=== PATIENT | female | born 1940 | race Caucasian/White ===

== ENCOUNTER 2018-02-06 02:00 | Inpatient (IN) | payer MEDICARE, OTHER ==
[~2018-02-06] VITALS: Ht 162.6 cm; Wt 99.3 kg
[2018-02-06 02:02] VITALS: BP 140/101
[2018-02-06 02:29] LABS: ABSOLUTE BASOPHILS 0.1 thou/uL (0.0-0.2); ABSOLUTE EOSINOPHILS 0.8 thou/uL (0.0-0.7); ABSOLUTE LYMPHOCYTES 2.2 thou/uL (0.8-5.3); ABSOLUTE MONOCYTES 0.8 thou/uL (0.0-1.2); ABSOLUTE NEUTROPHILS 6.8 thou/uL (1.6-8.1); EOSINOPHILS 7.2 %; HEMATOCRIT 43.1 % (37.0-47.0); HEMOGLOBIN 14.2 gm/dL (12.0-15.0); LYMPHOCYTES 20.4 %; MCH 31.3 pg (26.0-34.0); MCV 94.9 fL (80.0-100.0); MONOCYTES 7.9 %; MPV 8.1 fl. (7.2-11.1); NUCLEATED RBCS 0 /100WBC; PLATELET COUNT* 305 thou/uL (150-400); POLYS 63.5 %; RBC 4.54 mil/uL (4.20-5.00); RDW-CV 13.7 % (10.5-14.5); WBC 10.7 thou/uL (4.0-11.0)
[2018-02-06 02:33] LABS: CALCIUM 8.6 mg/dL (8.5-10.1); CREATININE 0.8 mg/dL (0.6-1.3); POTASSIUM 3.3 mmol/L (3.5-5.1)
[2018-02-06 02:36] LABS: APTT 46.2 Seconds (25.0-31.3); INR 3.1; PROTIME 31.4 Seconds (9.20-11.50)
[2018-02-06 02:37] LABS: ALBUMIN 2.9 g/dL (3.4-5.0); TOTAL BILIRUBIN 0.3 mg/dL (<0.1-1.0); TOTAL PROTEIN 7.1 g/dL (6.4-8.2)
[2018-02-06 03:24] LABS: URINE BILIRUBIN NEGATIVE (Negative); URINE BLOOD TRACE (Negative); URINE CLARITY CLEAR; URINE COLOR YELLOW; URINE GLUCOSE-RANDOM NEGATIVE (Negative); URINE KETONES NEGATIVE (Negative); URINE LEUKOCYTES-REFLEX NEGATIVE (Negative); URINE NITRITE-REFLEX NEGATIVE (Negative); URINE PROTEIN NEGATIVE (Negative); URINE UROBILINOGEN 0.2 E.U./dl (0.2-1.0)
[2018-02-06] MEDS ORDERED: GABAPENTIN 100100 MG PO (04:14)
[2018-02-06] MEDS ORDERED: CYMBALTA30 MG PO (04:14)
[2018-02-06] MEDS ORDERED: NORVASC5 MG PO (04:14)
[2018-02-06] MEDS ORDERED: COUMADIN 3 MG TA3 M1 PO (04:15)
[2018-02-06] MEDS ORDERED: COUMADIN 4 MG TA4 M1 PO (04:15)
[2018-02-06] MEDS ORDERED: ARICEPT 5 MG TAB5 MG PO (04:16)
[2018-02-06] MEDS ORDERED: PROTONIX40 M1 PO (04:16)
[2018-02-06] MEDS ORDERED: WELLBUTRIN SR150 MG PO (04:16)
[2018-02-06] MEDS ORDERED: TRAZODONE 150150 M1 PO (04:16)
[2018-02-06] MEDS ORDERED: CYCLOBENZAPRINE5 MG PO (04:44)
[2018-02-06 04:51] VITALS: BP 145/79
[2018-02-06 05:37] VITALS: BP 148/80
--- NOTE | 2018-02-06 06:06 | NUR ---
PATIENT ARRIVED TO ROOM ALERT BUT HAVING SOME EXPRESSIVE AHPASIA. PATIENT HAVING DIFFICULTY WITH ANSWERING QUESTIONS AND IS A POOR HISTORIAN. NO FAMILY AT BEDSIDE. ASSESSMENT COMPLETED BEST POSSIBLE CHARTED. NO C/O PAIN OR NAUSEA AT THIS TIME. ORIENTED TO ROOM AND CALL LIGHT. CALL LIGHT WITHIN REACH. BED ALARM ON.
[2018-02-06 07:45] VITALS: BP 151/73
--- NOTE | 2018-02-06 07:51 | NUR ---
ALERT TO SELF AND PLACE. HAS EXPRESSIVE APHASIA. DENIES C/O PAIN OR NAUSEA. IV SALINE LOCKED. CALL LIGHT WITHIN REACH. BED ALARM ON.
[2018-02-06 16:00] VITALS: BP 110/74
[2018-02-06] MEDS ORDERED: MIRALAX17 GM PO (18:11)
--- NOTE | 2018-02-06 18:48 | NUR ---
PT ALERT TO SELF; HAS EXPRESSIVE APHASIA. DENIES PAIN. FIELD IV IN RAC PATIENT. PT UP WITH MIN ASSIST X 1. PT RECIEVED POTASSIUM 40 MEQ X 3 DOSES PER ELECTROLYTE PROTOCOL. PT WILL USE CALL LIGHT FOR ASSISTANCE. CALL LIGHT WITHIN REACH. NURSING WILL CONTINUE TO MONITOR.
[2018-02-06 20:15] VITALS: BP 138/88
[2018-02-07 03:58] LABS: HEMATOCRIT 41.3 % (37.0-47.0); HEMOGLOBIN 13.9 gm/dL (12.0-15.0); MCH 31.9 pg (26.0-34.0); MCHC 33.8 g/dL (28.0-37.0); MCV 94.6 fL (80.0-100.0); RBC 4.36 mil/uL (4.20-5.00); RDW-CV 13.9 % (10.5-14.5); WBC 8.5 thou/uL (4.0-11.0)
[2018-02-07 04:23] LABS: INR 2.5; PROTIME 25.9 Seconds (9.20-11.50)
[2018-02-07 04:31] LABS: CALCIUM 8.6 mg/dL (8.5-10.1); CREATININE 0.8 mg/dL (0.6-1.3); MAGNESIUM 1.4 mg/dL (1.8-2.4)
--- NOTE | 2018-02-07 05:03 | NUR ---
Alert and oriented x 4. Very slow to respond verbally. She has expressive aphasia. She is slow to get up out of bed and needs encouragement. She doesn't like to move, she has facial grimace that indicates she has back pain. Vitals are stable. She has slept well.
[2018-02-07 08:10] VITALS: BP 145/94
--- NOTE | 2018-02-07 14:54 | NUR ---
PT.UP IN CHAIR AT BEDSIDE. SHE HAS EXPRESSIE APHASIA BUT SEEMED TO ANSWER APPROPRIATELY. SAID SHE LVES WITH HER . HE HELPS HER WITH EVERYTHING SHE SAID. DAUGHTER ,HAROLDO LIVES THERE ALSO. SHE SAID SHE DID NOT KNOW WHY SHE FALLS. SHE SAID SHE DOESN'T USE ANY DME. SHE SAID YES WHEN ASKED HER IF SHE WOULD BE AGREEABLE TO GO TO A NSG.FACILITY TO GET MORE THERAPIES. MARTY CALLED DAUGHTERHAROLDO, WHO IS ON EMERGENCY CONTACT TO CONFIRM ABOVE. SHE SAID SHE DOES LIVE WITH HER MOM AND DAD. SHE IS DISABLED HER SELF AND CANNOT LIFT ON MOM . HER DAD USES A WALKER BUT IS ABLE TO HELP HER. THEY HAVE A CLEANING LADY THAT CLEANS AND SHE SITS WITH HER MOM FOR 4 HRS A DAY. SHE CAN'T DO ANYTHING, SHE DOESN'T HAVE ANY TRAINING. HAROLDO SAID HER MOM IS TOTALLY DIFFERENT AT HOME THAT SHE IS WHEN SHE IS AT THE HOSPITAL. SHE WILL DO THERAPY AND TRANSFER ETC AT HOSPITAL BUT WHEN SHE GETS ELIAN SHE ONLY WILL LAY IN BED OR SITI CHAIR AND NOT PARTICIPATE WITH HOME HEALTH THERAPY. SHE SAID HER DAD WENT TO [facility] IN [place] TODAY AND WOULD WNAT PT.TO GO THEIR FOR SNF. MARTY FAXED REFERRAL TO [facility]. [facility] CAME TO VISIT. THEY ARE RUNNING PT.S MEDICARE DAYS. SHE WILL UPDATE MARTY
[2018-02-07 16:00] VITALS: BP 121/80
--- NOTE | 2018-02-07 18:37 | NUR ---
PT ALERT AND ORIENTED, BUT HAS DIFFICULTY WITH COMMUNICATION DUE TO EXPRESSIVE APHASIA. IV PATENT. PT DENIES PAIN EXCEPT WHEN RISING FROM A LYING POSITION. ABLE TO AMBULATE WITH MIN ASSIST X 1. PT RECEIVED 2ND DOSE PO MAGNESIUM PER ELECTROLYTE PROTOCOL. HOURLY ROUNDS MAINTAINED. WILL USE CALL LIGHT FOR ASSISTANCE. CALL LIGHT WITHIN REACH. NURSING WILL CONTINUE TO MONITOR.
[2018-02-07 20:00] VITALS: BP 146/86
--- NOTE | 2018-02-08 06:05 | NUR ---
Alert and oriented x 4. She has expressive aphasia. She is very slow to get up with walker and gaitbelt. Once she's up she does good. She has swallowed pills whole one at a time but with slowly. She refuses pain meds. Vitals are stable. she has slept well.
[2018-02-08 08:25] LABS: HEMOGLOBIN 14.4 gm/dL (12.0-15.0); MCH 31.5 pg (26.0-34.0); MCHC 33.4 g/dL (28.0-37.0); MCV 94.5 fL (80.0-100.0); MPV 8.3 fl. (7.2-11.1); RBC 4.55 mil/uL (4.20-5.00); RDW-CV 13.7 % (10.5-14.5); WBC 8.7 thou/uL (4.0-11.0)
[2018-02-08 08:36] LABS: PROTIME 20.4 Seconds (9.20-11.50)
[2018-02-08 08:40] LABS: CALCIUM 8.7 mg/dL (8.5-10.1); CREATININE 0.9 mg/dL (0.6-1.3); MAGNESIUM 1.6 mg/dL (1.8-2.4)
[2018-02-08 09:57] VITALS: BP 116/48
[2018-02-08 16:06] VITALS: BP 163/90
--- NOTE | 2018-02-08 16:40 | NUR ---
SPOKE WITH PT.S . HE SAID HE WOULD LIKE TO DRIVE TO [facility] TOMORROW. HE SAID HE BROUGHT HER SOME CLOTHES TO WEAR. HE ASKED ABOUT WHAT TIME SHE WOULD BE RELEASED. EXPLAINED THE WOULD NEED TO SEE PT.PRIOR TO DISCHARGE,SO IT WOULD LIKELY BE LATE MORNING OR EARLY AFTERNOON. HE SAID THAT WAS FINE.
[2018-02-08 20:07] VITALS: BP 125/66
--- NOTE | 2018-02-09 04:17 | NUR ---
ASSUMED CARE OF PT AT 1900 PT ALERT AND ORIENTED X1 VS AND ASSESSMENT AT PTS BASELINE. PT DENIED ANY COMPLAINTS AND SLEPT THROUGH THE NIGHT. WILL CONTINUE PLAN OF CARE.
[2018-02-09 06:22] LABS: PROTIME 20.2 Seconds (9.20-11.50)
[2018-02-09 09:23] VITALS: BP 142/62
[2018-02-09] MEDS ORDERED: TRAMADOL 50 MG50 MG PO (09:27)
[2018-02-09] MEDS ORDERED: LIDOPATCH1 EACH TOP (09:27)
[2018-02-09] MEDS ORDERED: ASPIRIN325 PO (09:27)
[2018-02-09 11:24] VITALS: BP 142/62
--- NOTE | 2018-02-09 11:44 | NUR ---
PT.TO DISCHARGE TODAY TO SKILLED BED AT [facility]. NOTIFIED OLIVE [phone] AND FAXED HER DISCHARGE SUMMARY AND MED LIST TO [phone]. ATTEMPTED TO CALL PT.'S TO LET HIM KNOW SHE IS READY FOR DISCHARGE. NO ANSWER ON HOME NUMBER. LEFT VM. CHART COPIED TO GO WITH PT. ESTELARN WILL CALL REPORT TO JOSE LUIS.
--- NOTE | 2018-02-09 13:22 | NUR ---
ASSUMED CARE OF PATIENT AFTER MORNING REPORT AT APPROX 0720. ALERT TO SELF AND CONFUSED. PATEINT IS GENERALLY PLEASANT AND ANSWERS QUESTIONS TO THE BEST OF HER ABILITY BUT HAS TROUBLE FINDING HER WORDS TO EXPRESS HER NEEDS. ASSESSMENT COMPLETED AND CHARTED. VSS ON ROOM AIR. NO COMPLAINTS OF NAUSEA OR SOA. PAIN HAS BEEN MINIMAL AND MANAGED WITH LIDOCAINE PATCH. PATIENT DISCHARGED TO FACILITY AT 1315. CALLED REPORT TO TERESE AT [facility]. ALL PERSONAL BELONGINGS AND DISCHARGE TO FACILITY PACKET SENT WITH PATIENT AND WHO IS TAKING HER TO THE FACILITY.
== END 2018-02-09 13:15 | DRG 555 ==
LOC: M.ERS 02:00 → M.ORTHSURG 04:00 → M.TBA-ER 04:00 → M.ORTHSURG 05:17
PROVIDERS: Family Medicine; ADMIT Internal Medicine
DX: M25.551 Pain in right hip (principal); G93.40 Encephalopathy, unspecified; E44.1 Mild protein-calorie malnutrition; E87.6 Hypokalemia; G30.9 Alzheimer's disease, unspecified; F02.80 Dementia in other diseases classified elsewhere, unspecified severity, without behavioral disturbance, psychotic disturbance, mood disturbance, and anxiety; M54.9 Dorsalgia, unspecified; R29.6 Repeated falls; Z86.73 Personal history of transient ischemic attack (TIA), and cerebral infarction without residual deficits; Z79.899 Other long term (current) drug therapy; Z79.01 Long term (current) use of anticoagulants; Z88.8 Allergy status to other drugs, medicaments and biological substances; Z88.0 Allergy status to penicillin; Z88.2 Allergy status to sulfonamides; Z86.711 Personal history of pulmonary embolism; Z68.37 Body mass index [BMI] 37.0-37.9, adult

== ENCOUNTER 2020-05-28 19:49 | Inpatient (IN) | payer OTHER ==
[~2020-05-28] VITALS: Ht 165.1 cm; Wt 70.7 kg
--- NOTE | ~2020-05-28 | EMS ---
[place] [address] EMS Patient Care Report Name: DINA CROWLEY Room: [address] IN [facility]#: [id number] Admission: 05/28/20 Attend Phys: Zaira Donis MD Discharge: Date of : 44 Report #: [id number] THIS REPORT FOR: //name// Report Transmitted: 06/01/2020 18:36 EMS Care Summary [facility] Incident [id number] @ 05/28/2020 19:09 Incident Location [address] [place] [address] Patient DINA CROWLEY Female, 79 Years 1940 Patient Address [address] [place] [address] Patient History Seizures, Patient Allergies No known allergies, Patient Medications Amlodipine, Duloxetine, Donepezil, Clopidogrel, Trazodone, Levetiracetam, Potassium, Atorvastatin, Chief Complaint Unresponsive Disposition Transported Lights/[place] Dispatch Reason Unknown Problem/Person Down Transported To [facility] Narrative Dispatch: [facility] was dispatched for a female patient unresponsive with light breathing. Med 1 copied tones [place] [address] EMS Patient Care Report Name: DINA CROWLEY Room: [address]#: [id number] Admission: 05/28/20 Attend Phys: Zaira Donis MD Discharge: Date of : 44 Report #: [id number] Chief Complaint: Med 1 arrived on scene to find the patient lying supine in her bed, unresponsive. Med 1 requested response from [facility]. A 12 lead EKG was performed showing sinus tachycardia, no ectopy. Along with a set of baseline vitals. The patient began to seize, and 5mg Versed was given IM. The patient was placed onto 2 liters O2 nasal cannula. History of present illness/YULISSA: Patient???s walked in their bedroom to find the patient lying unresponsive. Patient???s does not know the last well known. The states the patient was ???fine??? throughout the day. States the patient did not complain of feeling sick. The states the patient does have a history of seizures. Assessment: Airway: Clear, patent, and self maintained. Breathing: Clear, and equal bilaterally. Non labored, tachypnea. Circulation: Skin is pink, warm, and dry. Strong radial and carotid pulses. Disability: Unresponsive. Exposures: No life threats were found. See ???assessments??? tab for further. Reason for ambulance: Patient is unresponsive, family requesting EMS treatment and transport to [facility] ED. Treatments: 12 lead EKG showing sinus tachycardia. 5mg Versed IM. 20G IV LAC. 2 liters O2 nasal cannula. 12 lead EKG showing Inferior STEMI. 4 liters O2 ETCO2 nasal cannula. 18G IV RAC successful. Monitor vitals throughout transport. Patient???s airway remained clear, patent, and self maintained. Summary: With the assistance of EMS and Fire, a blanket was placed under the patient and the patient was then carried and placed onto the stretcher where she was secured in place, and placed into the ambulance for transport. A 12 lead EKG was performed showing an Inferior STEMI. Med 1 went en route emergent to [facility] in [place]. An 18G IV was established as well as ETCO2 nasal cannula at 4 liters showing non obstructed waveforms. Serial 12 lead EKG???s were performed throughout transport showing an Inferior STEMI. Radio report was given and no further questions or orders were received. The patient???s overall condition remained the same throughout transport. Med 1 arrived at destination and the patient was taken to room 1 in the ED. The patient was sheet transferred onto the bed. Report was given and signatures and paperwork were received. The ER physician confirmed an Inferior STEMI. Med 1 returned back in service. Initial Vitals @20:04P: 106,BP: 107/62,SpO2: 100,NE Suspected: true @20:00R: 28,BP: 108/60,EtCO2: 35,NE Suspected: [place] [address] EMS Patient Care Report Name: DINA CROWLEY Room: [address] IN [facility]#: [id number] Admission: 05/28/20 Attend Phys: Zaira Donis MD Discharge: Date of : 44 Report #: [id number] @20:06MI Suspected: true @19:39P: 110,BP: 91/46,SpO2: 98, @19:52P: 104,R: 26,BP: 108/60,EtCO2: 31,SpO2: 97, @19:55P: 102,R: 23,BP: 109/59,EtCO2: 30,SpO2: 100, @19:51BP: 109/62, @19:19P: 128,GCS: 3,NE Suspected: false @19:34P: 115,R: 29,BP: 50/30,EtCO2: 0,SpO2: 97,NE Suspected: true @19:45P: 107,R: 33,EtCO2: 30,SpO2: 96,NE Suspected: true @19:40P: 107,R: 30,BP: 111/60,EtCO2: 32,SpO2: 94,NE Suspected: true @19:32MI Suspected: true Assessments @19:14MENTAL:Unresponsive,SKIN:HEENT:LUNG SOUNDS:ABDOMEN:PELVIS//GI:EXTREMITIES:Capillary Refill: Right Upper: < 2 Sec,PULSE:Radial: 2+ Normal,NEURO:@19:40MENTAL:Unresponsive,SKIN:HEENT:LUNG SOUNDS:ABDOMEN:PELVIS//GI:EXTREMITIES:Capillary Refill: Right Upper: < 2 Sec,PULSE:Radial: 2+ Normal,NEURO: Impression Unconscious Procedures @19:1912-Lead ECGResponse: UnchangedSucceeded@20:0012-Lead ECGResponse: UnchangedSucceeded@19:4512-Lead ECGResponse: UnchangedSucceeded@20:0412-Lead ECGResponse: UnchangedSucceeded@19:3212-Lead ECGResponse: UnchangedSucceeded@19:4012-Lead ECGResponse: UnchangedSucceeded@20:0612-Lead ECGResponse: UnchangedSucceeded@19:3412-Lead ECGResponse: UnchangedSucceeded@19:22Midazolam - 5 Milligrams (mg) - Intramuscular (IM)Response: Improved@19:23Saline Lock 0cc (20 ga) Site: Antecubital-LeftResponse: UnchangedSucceeded@19:40Saline Lock 0cc (18 ga) Site: Antecubital-RightResponse: UnchangedSucceeded@19:14ALS AssessmentResponse: UnchangedSucceeded@19:15Oxygen FlowRate: 2 Device: Nasal Cannula (NC) Response: UnchangedSucceeded@19:50Surgical Mask on PatientResponse: Unchanged Timeline 19:09,Call Received 19:09,Dispatched 19:11,En Route 19:13,On Scene 19:14,At Patient 19:14,ALS Assessment,Response: UnchangedSucceeded, 19:15,Oxygen FlowRate: 2 Device: Nasal Cannula (NC) Response: UnchangedSucceeded, 19:19,12-Lead ECG,Response: UnchangedSucceeded, 19:19,BP: / M,PULSE: 128,RR: R,SPO2: Ox,ETCO2: ,BG: ,PAIN: ,GCS: 3, 19:22,Midazolam - 5 Milligrams (mg) - Intramuscular (IM),Response: [place] [address] EMS Patient Care Report Name: DINA CROWLEY Room: [address] IN M.R.#: [id number] Admission: 05/28/20 Attend Phys: Zaira Donis MD Discharge: Date of : 44 Report #: [id number] 19:23,Saline Lock 0cc 20 ga Site: Antecubital-Left,Response: UnchangedSucceeded, 19:32,12-Lead ECG,Response: UnchangedSucceeded, 19:32,BP: / M,PULSE: ,RR: R,SPO2: Ox,ETCO2: ,BG: ,PAIN: ,GCS: , 19:34,Depart Scene 19:34,12-Lead ECG,Response: UnchangedSucceeded, 19:34,BP: 50/30 M,PULSE: 115,RR: 29 R,SPO2: 97 Ox,ETCO2: 0 ,BG: ,PAIN: ,GCS: , 19:39,BP: 91/46 M,PULSE: 110,RR: R,SPO2: 98 Ox,ETCO2: ,BG: ,PAIN: ,GCS: , 19:40,Saline Lock 0cc 18 ga Site: Antecubital-Right,Response: UnchangedSucceeded, 19:40,12-Lead ECG,Response: UnchangedSucceeded, 19:40,BP: 111/60 M,PULSE: 107,RR: 30 R,SPO2: 94 Ox,ETCO2: 32 ,BG: ,PAIN: ,GCS: , 19:45,12-Lead ECG,Response: UnchangedSucceeded, 19:45,BP: / M,PULSE: 107,RR: 33 R,SPO2: 96 Ox,ETCO2: 30 ,BG: ,PAIN: ,GCS: , 19:50,Surgical Mask on Patient,Response: Unchanged 19:51,BP: 109/62 M,PULSE: ,RR: R,SPO2: Ox,ETCO2: ,BG: ,PAIN: ,GCS: , 19:52,BP: 108/60 M,PULSE: 104,RR: 26 R,SPO2: 97 Ox,ETCO2: 31 ,BG: ,PAIN: ,GCS: , 19:55,BP: 109/59 M,PULSE: 102,RR: 23 R,SPO2: 100 Ox,ETCO2: 30 ,BG: ,PAIN: ,GCS: , 20:00,12-Lead ECG,Response: UnchangedSucceeded, 20:00,BP: 108/60 M,PULSE: ,RR: 28 R,SPO2: Ox,ETCO2: 35 ,BG: ,PAIN: ,GCS: , 20:04,12-Lead ECG,Response: UnchangedSucceeded, 20:04,BP: 107/62 M,PULSE: 106,RR: R,SPO2: 100 Ox,ETCO2: ,BG: ,PAIN: ,GCS: , 20:04,At Destination 20:06,12-Lead ECG,Response: UnchangedSucceeded, 20:06,BP: / M,PULSE: ,RR: R,SPO2: Ox,ETCO2: ,BG: ,PAIN: ,GCS: , 21:03,Call Closed Disclaimer v1.1 Copyright 2020 1-800-DOCTORS This EMS Care Summary contains data elements from the applicable legal record (which may be displayed differently). It is designed to provide pertinent information for the following purposes: continuity of care, clinical quality, and state data reporting. The complete legal record is available to ED staff and administrators of the receiving hospital in ES's Patient Tracker. All data is provided "as is."
[~2020-05-28 19:49] MED LIST: ARICEPT 5 MG TAB5 MG PO; ASPIRIN325 PO; COUMADIN 3 MG TA3 M1 PO; COUMADIN 4 MG TA4 M1 PO; CYCLOBENZAPRINE5 MG PO; CYMBALTA30 MG PO; GABAPENTIN 100100 MG PO; LIDOPATCH1 EACH TOP; MIRALAX17 GM PO; NORVASC5 MG PO; PROTONIX40 M1 PO; TRAMADOL 50 MG50 MG PO; TRAZODONE 150150 M1 PO; WELLBUTRIN SR150 MG PO
[2020-05-28 20:05] VITALS: BP 156/81
[2020-05-28] MEDS ORDERED: LEVETIRACETAM250 MG PO (20:12)
[2020-05-28] MEDS ORDERED: LIPITOR40 MG PO (20:12)
[2020-05-28] MEDS ORDERED: PROBIOTIC1 EAC7 PO (20:13)
[2020-05-28] MEDS ORDERED: EFFER-K 10 MEQ10 ME1 PO (20:13)
[2020-05-28] MEDS ORDERED: CRANBERRY500 M3 PO (20:14)
[2020-05-28] MEDS ORDERED: VITAMIN C500 M2 PO (20:15)
[2020-05-28] MEDS ORDERED: VITAMIN D3125 MC1 PO (20:15)
[2020-05-28] MEDS ORDERED: VITAMIN D3125 MC2 PO (20:15)
[2020-05-28] MEDS ORDERED: PLAVIX 75 MG TA75 MG PO (20:16)
[2020-05-28] MEDS ORDERED: SPRITAM250 MG PO (20:17)
[2020-05-28 20:27] LABS: ABSOLUTE BASOPHILS 0.1 thou/uL (0.0-0.2); ABSOLUTE EOSINOPHILS 0.2 thou/uL (0.0-0.7); ABSOLUTE LYMPHOCYTES 2.6 thou/uL (0.8-5.3); ABSOLUTE MONOCYTES 0.8 thou/uL (0.0-1.2); ABSOLUTE NEUTROPHILS 11.6 thou/uL (1.6-8.1); BASOPHILS 0.6 %; HEMATOCRIT 41.9 % (37.0-47.0); HEMOGLOBIN 13.7 gm/dL (12.0-15.0); LYMPHOCYTES 17.1 %; MCH 31.6 pg (26.0-34.0); MCHC 32.8 g/dL (28.0-37.0); MCV 96.5 fL (80.0-100.0); MONOCYTES 5.3 %; NUCLEATED RBCS 0 /100WBC; PLATELET COUNT* 212 thou/uL (150-400); RBC 4.34 mil/uL (4.20-5.00); WBC 15.2 thou/uL (4.0-11.0)
[2020-05-28 20:36] LABS: CALCIUM 9.2 mg/dL (8.5-10.1); CREATININE 1.1 mg/dL (0.6-1.3)
[2020-05-28 20:37] LABS: POTASSIUM 2.4 mmol/L (3.5-5.1)
[2020-05-28 20:38] LABS: INR 1.2; PROTIME 12.8 Seconds (9.20-11.50)
[2020-05-28 20:51] LABS: ALBUMIN 2.9 g/dL (3.4-5.0); TOTAL BILIRUBIN 0.9 mg/dL (<0.1-1.0); TOTAL PROTEIN 6.6 g/dL (6.4-8.2)
[2020-05-28 20:53] LABS: MAGNESIUM 0.5 mg/dL (1.8-2.4)
[2020-05-28 21:15] LABS: INFLUENZA A ANTIGEN Negative (Negative); INFLUENZA B ANTIGEN Negative (Negative)
[2020-05-28 22:55] LABS: URINE BILIRUBIN NEGATIVE (Negative); URINE BLOOD NEGATIVE (Negative); URINE CLARITY CLEAR; URINE COLOR YELLOW; URINE GLUCOSE-RANDOM NEGATIVE (Negative); URINE KETONES NEGATIVE (Negative); URINE LEUKOCYTES-REFLEX NEGATIVE (Negative); URINE NITRITE-REFLEX NEGATIVE (Negative); URINE PROTEIN NEGATIVE (Negative); URINE SPECIFIC GRAVITY <= 1.005 (1.005-1.030); URINE UROBILINOGEN 0.2 E.U./dl (0.2-1.0)
[2020-05-29] VITALS (18 sets, daily range): BP systolic 90–116; BP diastolic 42–84
[2020-05-29 02:15] LABS: BE 4.7 mmol/L (-2 to +3); PCO2 36.4 mmHg (35.0-45.0); PO2 103.3 mmHg (75.0-100.0); pH 7.502 (7.340-7.450)
[2020-05-29 05:05] LABS: HEMATOCRIT 38.7 % (37.0-47.0); MCH 31.5 pg (26.0-34.0); MCHC 33.5 g/dL (28.0-37.0); MCV 94.1 fL (80.0-100.0); MPV 9.1 fl. (7.2-11.1); RBC 4.12 mil/uL (4.20-5.00); RDW-CV 14.4 % (10.5-14.5); WBC 14.5 thou/uL (4.0-11.0)
[2020-05-29 05:26] LABS: CALCIUM 8.7 mg/dL (8.5-10.1); CREATININE 0.7 mg/dL (0.6-1.3)
[2020-05-29 05:31] LABS: POTASSIUM 2.7 mmol/L (3.5-5.1); TROPONIN-I LEVEL 2.28 ng/mL (<0.06)
--- NOTE | 2020-05-29 10:45 | EKG ---
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: YENY THORNTONB: 1940 Requested By: Mellisa Holly Order Number: [id number] MD: Jordan Azar Measurements Intervals [place] Rate: 107 P: 11 OR: 116 QRS: -19 QRSD: 78 T: 71 QT: 448 QTc: 598 Interpretive Statements Sinus tachycardia Borderline left axis deviation Low voltage, precordial leads Prolonged QT interval poor r wave progression No previous ECG available for comparison Electronically Signed On 05-29-2020 10:44:54 RACEBOOK WRITER by Jordan Azar [email or web address] <ELECTRONICALLY SIGNED> By: Jordan Azar MD, FAC 05/29/20 1044 08 08 Jordan Azar MD, [facility] /EPI
--- NOTE | 2020-05-29 11:51 | 2DMMODE ---
[place] [address] 2 D/M-MODE ECHOCARDIOGRAM Name: RAINA CROWLEYYCE Kendal Room: [address] IN [facility]#: [id number] Admission: 05/28/20 Attend Phys: Zaira Donis, Discharge: Date of : 44 Date of Service: 05/29/20 1151 Report #: [id number] THIS REPORT FOR: cc: Junior Parkinson MD, Matthew D MD Liston, Michael J. MD [facility] ~ APPROVED REPORT Study performed: 05/29/2020 09:56:15 EXAM: Comprehensive 2D, Doppler, and color-flow Echocardiogram Patient Location: In-Patient Room #: 006 Status: routine BSA: 1.78 HR: 90 bpm BP: 108/53 mmHg Rhythm: NSR Other Information Study Quality: Good Indications Acute [place] 2D Dimensions IVSd: 9.03 (7-11mm) LVOT Diam: 18.69 (18-24mm) LVDd: 43.89 mm PWd: 8.49 (7-11mm) Ascending Ao: 32.51 (22-36mm) LVDs: 24.96 (25-40mm) Aortic Root: 32.81 mm Volumes Left Atrial Volume (Systole) LA ESV Index: 20.70 mL/m2 Aortic Valve AoV Peak Andrew.: 1.36 m/s AO Peak Gr.: 7.43 mmHg LVOT Max P.98 mmHg AO Mean Gr.: 3.45 mmHg LVOT Mean P.46 mmHg LVOT Max V: 1.12 m/s AO V2 VTI: 24.13 cm LVOT Mean V: 0.72 m/s BRIAN (VTI): 2.76 cm2 LVOT V1 VTI: 24.26 [place] [address] 2 D/M-MODE ECHOCARDIOGRAM Name: DINA CROWLEY Room: [address] IN ..#: [id number] Admission: 05/28/20 Attend Phys: Zaira Donis, Discharge: Date of : 44 Date of Service: 05/29/20 1151 Report #: [id number] Mitral Valve E/A Ratio: 0.82 MV Decel. Time: 238.27 ms MV E Max Andrew.: 0.63 m/s MV PHT: 69.10 ms MVA (PHT): 3.18 cm2 TDI E/Lateral E': 9.00 E/Medial E': 9.00 Medial E' Andrew.: 0.07 m/s Lateral E' Andrew.: 0.07 m/s Pulmonary Valve PV Peak Andrew.: 1.01 m/s PV Peak Gr.: 4.12 mmHg Tricuspid Valve RAP Estimate: 5.00 mmHg TR Peak Gr.: 20.01 mmHg RVSP: 25.00 mmHg PA Pressure: 25.00 mmHg Left Ventricle The left ventricle is normal size. There is akinesis of the apex in a pattern possibly consistent with stress-induced cardiomyopathy. There is normal left ventricular wall thickness. Left ventricular systolic function is preserved. LVEF is 60-65%. Grade I - abnormal relaxation pattern. Right Ventricle The right ventricle is normal size. The right ventricular systolic function is normal. Atria The left atrium size is normal. The right atrium size is normal. Aortic Valve The aortic valve is normal in structure. No aortic regurgitation is present. There is no aortic valvular stenosis. Mitral Valve The mitral valve is normal in structure. There is no mitral valve regurgitation noted. No evidence of mitral valve stenosis. Tricuspid Valve The tricuspid valve is normal in structure. Trace tricuspid regurgitation. [place] [address] 2 D/M-MODE ECHOCARDIOGRAM Name: DINA CROWLEY Room: [address] IN .#: [id number] Admission: 05/28/20 Attend Phys: Zaira Donis, Discharge: Date of : 44 Date of Service: 05/29/20 1151 Report #: [id number] Pulmonic Valve The pulmonary valve is normal in structure. There is no pulmonic valvular regurgitation. Great Vessels The aortic root is normal in size. IVC is normal in size and collapses >50% with inspiration. Pericardium There is no pericardial effusion. <Conclusion> The left ventricle is normal size. There is normal left ventricular wall thickness. Left ventricular systolic function is preserved. LVEF is 60-65%. Grade I - abnormal relaxation pattern. There is akinesis of the apex in a pattern possibly consistent with stress-induced cardiomyopathy. Trace tricuspid regurgitation. No pulmonary hypertension. IVC is normal in size and collapses >50% with inspiration. <ELECTRONICALLY SIGNED> By: Jose Ramon Pendleton MD, FACC 05/29/20 1151 1151 1151 Jose Ramon Pendleton MD, FACC /INF
--- NOTE | 2020-05-29 14:48 | EKG ---
[place] [address] ELECTROCARDIOGRAM REPORT Name: DINA CROWLEY Kendal Room: [address] ADM IN M.R.#: [id number] Admission: 05/28/20 Attend Phys: Zaira Donis, Discharge: Date of : 44 Date of Service: 05/28/20 2330 Report #: [id number] THIS REPORT FOR: //name// [facility] ED Test Date: 2020-05-28 Test Time: 23:30:03 Pat Name: DINA CROWLEY Department: Room: [address] Gender: F Press Set Up: AT : 1940 Requested By: Mellisa Holly Order Number: [id number] Nhan MD: Jose Ramon Pendleton Measurements Intervals [place] Rate: 84 P: 17 AR: 122 QRS: 15 QRSD: 76 T: 52 QT: 418 QTc: 495 Interpretive Statements Sinus rhythm Atrial premature complex Prolonged QT interval Low voltage, extremity leads Compared to ECG 05/28/2020 20:09:06 Atrial premature complex(es) now present Sinus tachycardia no longer present Poor R-wave progression no longer present Electronically Signed On 05-29-2020 14:48:37 ANALYTICAL ENGINEER by Jose Ramon Pendleton [email or web address] <ELECTRONICALLY SIGNED> By: Jose Ramon Pendleton MD, FACC 05/29/20 1448 2330 233 Jose Ramon Pendleton MD, FAC /EPI
--- NOTE | 2020-05-29 14:48 | EKG ---
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: AT : 1940 Requested By: Mellisa Holly Order Number: [id number] Nhan MD: Jose Ramon Pendleton Measurements Intervals [place] Rate: 87 P: -4 UT: 132 QRS: 18 QRSD: 75 T: 62 QT: 437 QTc: 526 Interpretive Statements Sinus arrhythmia Borderline low voltage, extremity leads Prolonged QT interval Compared to ECG 05/28/2020 23:30:03 Sinus rhythm no longer present Atrial premature complex(es) no longer present Electronically Signed On 05-29-2020 14:48:44 EDUCATION SPEC by Jose Ramon Pendleton [email or web address] <ELECTRONICALLY SIGNED> By: Jose Ramon Pendleton MD, FACC 05/29/20 1448 233 233 Jose Ramon Pendleton MD, FACC /EPI
[2020-05-29 21:17] LABS: MAGNESIUM 1.5 mg/dL (1.8-2.4)
[2020-05-30] VITALS (8 sets, daily range): BP systolic 82–108; BP diastolic 39–78
[2020-05-30 03:27] LABS: HEMATOCRIT 34.5 % (37.0-47.0); HEMOGLOBIN 11.7 gm/dL (12.0-15.0); MCH 32.2 pg (26.0-34.0); MCHC 33.8 g/dL (28.0-37.0); MCV 95.2 fL (80.0-100.0); RBC 3.62 mil/uL (4.20-5.00); RDW-CV 15.3 % (10.5-14.5); WBC 11.1 thou/uL (4.0-11.0)
[2020-05-30 03:40] LABS: ALBUMIN 2.2 g/dL (3.4-5.0); CALCIUM 7.6 mg/dL (8.5-10.1); CREATININE 0.6 mg/dL (0.6-1.3); MAGNESIUM 2.2 mg/dL (1.8-2.4); POTASSIUM 3.8 mmol/L (3.5-5.1); TOTAL BILIRUBIN 0.9 mg/dL (<0.1-1.0); TOTAL PROTEIN 5.2 g/dL (6.4-8.2)
--- NOTE | 2020-05-30 13:52 | CON ---
[facility] [address] [place] [address] CONSULTATION Name: DINA CROWLEY Room: [address] IN .R.#: [id number] Admission: 05/28/20 Attend Phys: Zaira Donis MD Discharge: Date of : 44 Report #: [id number] THIS REPORT FOR: cc: Junior Parkinson MD, Matthew D MD ~ Robby Rollins MD DATE OF SERVICE: 05/29/2020 HISTORY OF PRESENT ILLNESS: This is a 79-year-old female patient who is unable to provide any history at all. This patient is intubated and she is on sedation. I called the patient's daughter and took the history from her. I talked to the nurses and reviewed the records. This patient had a stroke in 2013. She was in [facility] and she also had pulmonary embolus at the same time. I do not know what cause of that was. She was left with right hemiplegia and aphasia. She got part of it back and then she developed seizure. She was put on seizure medication, which she thinks was Keppra, but then the patient stopped taking it and refused to take it in March. She has not had any anticonvulsant since March. She started taking it back about a week and half ago. She does not know the dose and then she was admitted with multiple seizures. It looks like she also had a myocardial infarction at the same time and Cardiology consultation was reviewed in that regard. REVIEW OF SYSTEMS: A 14-point review of system was carried out with the family and from the records. She has hypokalemia and hypomagnesemia, seizure, has a history of back pain, altered mental status. She also appeared to have a history of depression. This was a relevant 14-point review of system. PAST MEDICAL HISTORY: Positive for a large stroke in 2014. FAMILY HISTORY: Unremarkable. SOCIAL HISTORY: She has a daughter whom I talked to. She has a who apparently want to talk to the hospitalist for the reason which I will summarize below. PHYSICAL EXAMINATION: Indicate that this patient is sedated. I cannot do any examinations on her. Her pupils are small. Reflexes are absent. There is no meningeal sign. Cardiac examination is unremarkable: She is a well-built individual who does not have any dysmorphic features of eyes, ears and face. Blood pressure is 101/61, respirations 13, pulse is 81. LABORATORY DATA: White count is 14.5. Potassium is only 2.7. She did have a CT angio on admission [place] [address] CONSULTATION Name: DINA CROWLEY Room: [address] IN .R.#: [id number] Admission: 05/28/20 Attend Phys: Zaira Donis MD Discharge: Date of : 44 Report #: [id number] IMPRESSION: This patient has seizure because of prior history of stroke. She had seizures in the past also. I will check an EEG. The daughter tell me that the wants to talk to the hospitalist. He wants to stop the vent. The patient is a DNR and he says that the patient was put on the vent because the paperwork was not there and now he wants to stop the vent. Still I think it will be good to get an EEG done because seizures are painful. I have put a call to Dr. Donis to discuss it further. I will increase her Keppra and if the does not want any further workup and in fact wants to discontinue everything, we will go ahead and do that after he has an opportunity to discuss with Dr. Donis. If I can be of any help, please let us know. but she should continue on anticonvulsant and if EEG shows seizure activity, then I think she should be even on bigger dosages of anticonvulsant. Thank you very much for this referral and if you have any question, please feel free to contact me. <ELECTRONICALLY SIGNED> By: Robby Rollins MD 05/30/20 1352 1500 [id number] Rollins MD /nt
[2020-05-31 00:24] VITALS: BP 97/48
[2020-05-31 05:20] VITALS: BP 115/49
[2020-05-31 08:00] VITALS: BP 127/65
--- NOTE | 2020-05-31 09:09 | CON ---
[facility] [address] [place] [address] CONSULTATION Name: DINA CROWLEY Room: [address] IN .R.#: [id number] Admission: 05/28/20 Attend Phys: Zaira Donis MD Discharge: Date of : 44 Report #: [id number] THIS REPORT FOR: cc: Junior Parkinson MD, Matthew D MD ~ Jose Ramon Pendleton MD FACC INDICATION: Elevated troponin and abnormal EKG in the setting of seizures. HISTORY OF PRESENT ILLNESS: The patient is a 79-year-old white female in whom I can find no documented prior cardiac issues. She does have a history of a fairly large left-sided stroke in 2013 with resultant right-sided hemiparesis and aphasia. The patient was brought to the hospital after EMS was called to the home as the patient was found unresponsive. EMS reports the patient had a seizure at the time of their arrival. The family reports that the patient's status had been dwindling for at least 2 weeks prior to this episode. The patient is aphasic and history is somewhat difficult with family. History was impossible here in the hospital. The patient's family does not believe that she was having any chest pain or at least not indicating any chest pain prior to onset of seizures. Initial EKG did show diffuse ST-segment elevation with QT prolongation. By the time of arrival to the hospital EKG, ST elevation had resolved. She continues to have some QT prolongation. The patient has been unresponsive since being brought to the hospital. History is not available. The patient's troponin on arrival was 0.18 and subsequently 1.84, 2.32 and now 2.28. EKG continues to show a sinus rhythm with no ST-segment changes at this time. There is slight QT prolongation. On monitor, she is in sinus rhythm, rate in the 80s. Her blood pressure is stable. She is intubated and remains unresponsive. PAST MEDICAL HISTORY: 1. CVA. 2. Hyperlipidemia. 3. Hypertension. SOCIAL HISTORY: Not clearly documented. There is no history of alcohol use. No documented history of tobacco use. FAMILY HISTORY: Not obtainable. REVIEW OF SYSTEMS: Not obtainable. HOME MEDICATIONS: According to the computer are amlodipine 5 mg daily, vitamin C 500 mg daily, atorvastatin 40 mg daily, probiotic capsule 1 tablet daily, vitamin D3 at 125 mcg daily, Plavix 75 mg at bedtime, cranberry extract daily, Aricept 5 mg 2 tablets at bedtime, Cymbalta 30 mg daily, Keppra 250 mg daily, levetiracetam 37.5 mg at bedtime, Protonix 40 mg at dinnertime, [place] [address] CONSULTATION Name: CROWLEYDINA Room: [address] [place] ..#: [id number] Admission: 05/28/20 Attend Phys: Zaira Donis MD Discharge: Date of : 44 Report #: [id number] bicarbonate 10 mEq as directed, trazodone 50 mg at bedtime. ALLERGIES: PENICILLIN, SULFA, LEVOFLOXACIN. PHYSICAL EXAMINATION: VITAL SIGNS: Stable. Blood pressure 109/59, pulse 84 and regular. GENERAL: This is an elderly female who is intubated and unresponsive. HEENT: Head is normocephalic, atraumatic. NECK: No jugular venous distention. I do not appreciate bruit. CHEST: Shows clear lung tariq. CARDIOVASCULAR: Reveals a regular rhythm without gallop or murmur. ABDOMEN: Reveals a soft abdomen with positive bowel sounds. EXTREMITIES: Show 1-2+ peripheral pulses. SKIN: Cool and dry. No edema. LABORATORY DATA: A 12-lead EKG shows a sinus rhythm without acute ST abnormality presently. There is some QT prolongation. Chest x-ray shows mild patchy infiltrate without obvious pulmonary vascular congestion. IMPRESSION AND RECOMMENDATIONS: 1. Non-ST elevation myocardial infarction based on enzymes. The patient presently is intubated and unresponsive. I would plan conservative management at this time. The patient does have a history of stroke in the past and has exhibited some symptoms to suggest possible recurrent stroke/seizure activity. I would not recommend heparin anticoagulation at this time. I would add an additional aspirin to the Plavix that she is already receiving. We will obtain noninvasive echocardiogram. I do not plan invasive evaluation at this time. 2. History of hypertension. The patient's blood pressure appears to be stable. 3. History of dyslipidemia. I would continue the patient's home atorvastatin at current dose per NG tube. 4. Possible seizure activity versus recurrent CVA per primary physician and Neurology. 5. Hypokalemia. Recommend continue protocol and give additional boluses as needed. 6. QT prolongation. The patient is not on any offensive medications at this time. I suspect this may be due to underlying cerebrovascular abnormalities. <ELECTRONICALLY SIGNED> By: Jose Ramon Pendleton MD, FACC 05/31/20 0909 [id number] Ramon Pendleton MD, FACC /nt
[2020-05-31 20:00] VITALS: BP 125/64
[2020-06-01 00:19] VITALS: BP 125/58
[2020-06-01 04:50] VITALS: BP 131/69
[2020-06-01 08:00] VITALS: BP 130/73
[2020-06-01 11:30] VITALS: BP 122/64
[2020-06-01 16:32] VITALS: BP 183/86
[2020-06-02 00:25] VITALS: BP 122/71
[2020-06-02 04:43] VITALS: BP 126/85
[2020-06-02 11:46] VITALS: BP 131/55
[2020-06-02 15:44] VITALS: BP 160/82
[2020-06-02 20:00] VITALS: BP 113/63
[2020-06-03] VITALS: BP 130/78
[2020-06-03 04:00] VITALS: BP 126/80
[2020-06-03 12:14] VITALS: BP 123/83
[2020-06-03 17:03] VITALS: BP 142/71
--- NOTE | 2020-06-03 17:07 | EKG ---
[place] [address] ELECTROCARDIOGRAM REPORT Name: CROWLEYDINA Kendal Room: [address] ADM IN M.R.#: [id number] Admission: 05/28/20 Attend Phys: Zaira Donis, Discharge: Date of : 44 Date of Service: 06/03/20 1556 Report #: [id number] THIS REPORT FOR: //name// [facility] Test Date: 2020-06-03 Test Time: 15:56:42 Pat Name: DINA CROWLEY Department: Room: [address] Gender: F Pierogi Maker: VITALY : 1940 Requested By: Little Bergeron Order Number: [id number] Nhan MD: Jose Ramon Pendleton Measurements Intervals Robertson Rate: 75 P: 38 MD: 109 QRS: -22 QRSD: 73 T: 72 QT: 354 QTc: 396 Interpretive Statements Sinus rhythm Atrial premature complex Short MD interval Borderline left axis deviation Nonspecific T abnormalities, anterolateral leads compared to ECG 05/28/2020 23:31:30 Atrial premature complex(es) now present Short MD interval now present T-wave abnormality now present Sinus arrhythmia no longer present Prolonged QT interval no longer present Electronically Signed On 06-03-2020 17:07:27 [employer]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
[2020-06-03 20:00] VITALS: BP 123/71
[2020-06-03 23:57] VITALS: BP 112/64
[2020-06-04 04:00] VITALS: BP 164/81
[2020-06-04 08:00] VITALS: BP 134/69
[2020-06-04 11:30] VITALS: BP 90/58
[2020-06-04 16:00] VITALS: BP 112/67
[2020-06-04] MEDS ORDERED: CEFDINIR300 MG PO (16:34)
[2020-06-04] MEDS ORDERED: ADULT LOW DOSE81 MG PO (16:35)
[2020-06-04] MEDS ORDERED: KEPPRA 500 MG500 M1 PO (16:35)
== END 2020-06-04 18:56 | DRG 208 ==
LOC: M.ERS 19:49 → M.TBA-ER 23:24 → M.2W 23:24 → M.ICU 23:24 → M.2W 05-30 02:21
PROVIDERS: Emergency Medicine; ADMIT Internal Medicine; ATTEND Internal Medicine
PROC: 5A1935Z Respiratory Ventilation, Less than 24 Consecutive Hours (ICD-10-PCS; principal; 2020-05-29)
PROC: 0BH17EZ Insertion of Endotracheal Airway into Trachea, Via Natural or Artificial Opening (ICD-10-PCS; principal; 2020-05-29)
DX: J96.01 Acute respiratory failure with hypoxia (principal); I21.3 ST elevation (STEMI) myocardial infarction of unspecified site; I69.351 Hemiplegia and hemiparesis following cerebral infarction affecting right dominant side; R56.9 Unspecified convulsions; G72.89 Other specified myopathies; E78.5 Hyperlipidemia, unspecified; I10 Essential (primary) hypertension; E87.6 Hypokalemia; G30.9 Alzheimer's disease, unspecified; F02.80 Dementia in other diseases classified elsewhere, unspecified severity, without behavioral disturbance, psychotic disturbance, mood disturbance, and anxiety; Z20.828 Contact with and (suspected) exposure to other viral communicable diseases; Z79.82 Long term (current) use of aspirin; Z79.01 Long term (current) use of anticoagulants; Z79.899 Other long term (current) drug therapy; Z88.0 Allergy status to penicillin; Z88.2 Allergy status to sulfonamides; Z88.8 Allergy status to other drugs, medicaments and biological substances; Z91.14 Patient's other noncompliance with medication regimen; Z86.19 Personal history of other infectious and parasitic diseases

== ENCOUNTER 2020-06-04 16:27 | Inpatient (IN) | payer OTHER ==
[~2020-06-04] VITALS: Ht 165.1 cm; Wt 66.9 kg
[~2020-06-04 16:27] MED LIST changes: +CRANBERRY500 M3 PO; +EFFER-K 10 MEQ10 ME1 PO; +LEVETIRACETAM250 MG PO; +LIPITOR40 MG PO; +PLAVIX 75 MG TA75 MG PO; +PROBIOTIC1 EAC7 PO; +SPRITAM250 MG PO; +VITAMIN C500 M2 PO; +VITAMIN D3125 MC1 PO; +VITAMIN D3125 MC2 PO
[2020-06-04] MEDS ORDERED: CEFDINIR300 MG PO (16:34)
[2020-06-04] MEDS ORDERED: KEPPRA 500 MG500 M1 PO (16:35)
[2020-06-04] MEDS ORDERED: ADULT LOW DOSE81 MG PO (16:35)
[2020-06-04 20:00] VITALS: BP 100/57
[2020-06-05 04:09] LABS: HEMATOCRIT 36.5 % (37.0-47.0); HEMOGLOBIN 12.2 gm/dL (12.0-15.0); MCH 31.9 pg (26.0-34.0); MCHC 33.4 g/dL (28.0-37.0); MCV 95.4 fL (80.0-100.0); MPV 8.9 fl. (7.2-11.1); RBC 3.82 mil/uL (4.20-5.00); RDW-CV 15.7 % (10.5-14.5)
[2020-06-05 04:20] LABS: CALCIUM 9.3 mg/dL (8.5-10.1); CREATININE 0.7 mg/dL (0.6-1.3)
[2020-06-05 04:23] LABS: POTASSIUM 2.9 mmol/L (3.5-5.1)
[2020-06-05 08:55] VITALS: BP 123/72
[2020-06-05 19:59] VITALS: BP 97/58
[2020-06-06 07:30] VITALS: BP 128/61
[2020-06-06 20:15] VITALS: BP 128/70
[2020-06-07 07:44] VITALS: BP 110/65
[2020-06-07 19:00] VITALS: BP 108/61
[2020-06-08 08:13] VITALS: BP 123/72
[2020-06-08 19:00] VITALS: BP 110/58
[2020-06-09 07:33] VITALS: BP 116/69
[2020-06-09 19:33] VITALS: BP 104/54
[2020-06-10 08:00] VITALS: BP 118/54
[2020-06-10 19:00] VITALS: BP 99/60
[2020-06-11 04:45] LABS: HEMATOCRIT 34.6 % (37.0-47.0); HEMOGLOBIN 11.5 gm/dL (12.0-15.0); MCH 32.3 pg (26.0-34.0); MCHC 33.4 g/dL (28.0-37.0); MCV 96.8 fL (80.0-100.0); MPV 8.9 fl. (7.2-11.1); RBC 3.58 mil/uL (4.20-5.00); RDW-CV 16.5 % (10.5-14.5); WBC 6.7 thou/uL (4.0-11.0)
[2020-06-11 04:48] LABS: CALCIUM 9.4 mg/dL (8.5-10.1); CREATININE 0.8 mg/dL (0.6-1.3); POTASSIUM 3.8 mmol/L (3.5-5.1)
[2020-06-11 07:30] VITALS: BP 127/68
[2020-06-11 13:33] VITALS: BP 127/68
[2020-06-11 19:30] VITALS: BP 108/51
[2020-06-12 05:18] LABS: CALCIUM 9.3 mg/dL (8.5-10.1); CREATININE 0.7 mg/dL (0.6-1.3); POTASSIUM 3.7 mmol/L (3.5-5.1)
[2020-06-12 08:14] VITALS: BP 118/68
[2020-06-12 20:00] VITALS: BP 106/64
[2020-06-13 08:00] VITALS: BP 112/62
[2020-06-13] MEDS ORDERED: ERYTHROMYCIN E3.5 G3 OPHTHALMIC (11:31)
[2020-06-13 12:00] VITALS: BP 127/68
== END 2020-06-13 14:15 | disposition home health service (06) | DRG 947 ==
LOC: M.REH 16:27
PROVIDERS: Family Medicine; ADMIT Physical Medicine & Rehabilitation; ATTEND Physical Medicine & Rehabilitation
DX: R53.81 Other malaise (principal); J96.00 Acute respiratory failure, unspecified whether with hypoxia or hypercapnia; I21.4 Non-ST elevation (NSTEMI) myocardial infarction; I51.81 Takotsubo syndrome; I69.351 Hemiplegia and hemiparesis following cerebral infarction affecting right dominant side; R47.01 Aphasia; R56.9 Unspecified convulsions; I10 Essential (primary) hypertension; E78.5 Hyperlipidemia, unspecified; E83.42 Hypomagnesemia; Z88.1 Allergy status to other antibiotic agents; I69.320 Aphasia following cerebral infarction; Z88.0 Allergy status to penicillin; Z88.2 Allergy status to sulfonamides